=== PATIENT | male | born 2000 | race Caucasian/White ===

== ENCOUNTER 2023-09-27 16:23 | Emergency (ER) | payer MEDICAID ==
[~2023-09-27] VITALS: Ht 172.7 cm; Wt 79.4 kg
[2023-09-27 17:06] VITALS: BP 130/80; PULSE 72; RESP 18; TEMP 98.2; O2SAT 98
[2023-09-27 19:45] VITALS: O2SAT 99
[2023-09-27 19:48] VITALS: BP 123/89; PULSE 72; RESP 14
[2023-09-27 19:50] VITALS: O2SAT 99
[2023-09-27] MEDS: KETOROLAC 30 MG/ML VIAL IM ONE (19:50)
[2023-09-27] MEDS ORDERED: IBUP-2213 PO (20:16)
[2023-09-27 20:28] LABS: APPEARANCE,URINE CLEAR (CLEAR); COLOR,URINE YELLOW (YELLOW); LEUKOCYTE ESTERASE ,URINE NEGATIVE (NEGATIVE)
[2023-09-27 20:29] LABS: NITRITE, URINE NEGATIVE (NEGATIVE); PROTEIN,URINE 4+ (NEGATIVE); UROBILINOGEN,URINE 0.2 EU/dL (0.2 - 1)
[2023-09-27 20:30] LABS: BLOOD, URINE 3+ (NEGATIVE)
[2023-09-27 20:31] LABS: BILIRUBIN,URINE NEGATIVE (NEGATIVE); UGLUCOSE NEGATIVE (NEGATIVE)
[2023-09-27 20:32] LABS: BACTERIA,URINE FEW /HPF (None Seen); RBC,URINE 11-20 (MOD) /HPF (0-5); SQUAMOUS EPITHELIAL CELL,UR 0-3 (FEW) /LPF (0-3 (FEW)); WBC,URINE 0-5 /HPF (0-5)
== END 2023-09-27 20:30 | disposition home or self-care (01) ==
LOC: MED 16:23
DX: N50.812 Left testicular pain (principal); Z79.899 Other long term (current) drug therapy
CPT/HCPCS: 76870; 81001; 87491; 96372; 99285; J1885; Q0092

== ENCOUNTER 2023-09-29 03:25 | Emergency (ER) | payer MEDICAID ==
[~2023-09-29] VITALS: Ht 170.2 cm; Wt 78.9 kg
[~2023-09-29 03:25] MED LIST: IBUP-2213 PO
[2023-09-29 04:00] VITALS: BP 120/72; PULSE 66; RESP 17; TEMP 97.8
[2023-09-29] MEDS: HYDROcodone/APAP 5/325 MG 1 TAB TAB PO ONE (05:24)
[2023-09-29] MEDS: KETOROLAC 30 MG/ML VIAL IM ONE (05:24)
[2023-09-29 05:50] LABS: CALCIUM 9.1 mg/dL (8.5-10.1); CARBON DIOXIDE 31.3 mmol/L (21-32); POTASSIUM 4.3 mmol/L (3.5-5.1)
[2023-09-29] MEDS ORDERED: IBUP-2213 PO (08:17)
[2023-09-29] MEDS ORDERED: ACET-8905 PO (08:17)
== END 2023-09-29 08:26 | disposition home or self-care (01) ==
LOC: MED 03:25
DX: R10.32 Left lower quadrant pain (principal); N50.812 Left testicular pain; R31.9 Hematuria, unspecified; Z79.899 Other long term (current) drug therapy
CPT/HCPCS: 36415; 74176; 80048; 81002; 96372; 99285; J1885

== ENCOUNTER 2023-10-01 16:30 | Emergency (ER) | payer MEDICAID ==
[~2023-10-01] VITALS: Ht 170.2 cm; Wt 78.9 kg
[~2023-10-01 16:30] MED LIST changes: +ACET-8905 PO
[2023-10-01 16:48] VITALS: BP 117/79; PULSE 85; RESP 18; TEMP 97.8; O2SAT 98
[2023-10-01 17:11] VITALS: O2SAT 98
[2023-10-01] MEDS: KETOROLAC 30 MG/ML VIAL IM ONE (17:27)
[2023-10-01 18:11] LABS: APPEARANCE,URINE CLEAR (CLEAR); BILIRUBIN,URINE 1+ (NEGATIVE); BLOOD, URINE 3+ (NEGATIVE); COLOR,URINE YELLOW (YELLOW); LEUKOCYTE ESTERASE ,URINE NEGATIVE (NEGATIVE); NITRITE, URINE NEGATIVE (NEGATIVE); PROTEIN,URINE 1+ (NEGATIVE); UGLUCOSE NEGATIVE (NEGATIVE); UROBILINOGEN,URINE 0.2 EU/dL (0.2 - 1)
[2023-10-01 18:12] VITALS: BP 111/74; PULSE 85; RESP 18; TEMP 97.8
[2023-10-01 18:34] LABS: ICTOTEST NEGATIVE (NEGATIVE)
[2023-10-01 18:35] LABS: BACTERIA,URINE FEW /HPF (None Seen); MUCUS,URINE None Seen /LPF (None Seen); RBC,URINE 20-50 /HPF (0-5); SQUAMOUS EPITHELIAL CELL,UR 0-3 (FEW) /LPF (0-3 (FEW)); TRICHOMONAS,URINE None Seen /HPF (None Seen); WBC,URINE 0-5 /HPF (0-5); WHITE BLOOD CELL CASTS,URINE None Seen /LPF (None Seen); YEAST,URINE None Seen /HPF (None Seen)
[2023-10-01 19:12] VITALS: O2SAT 98
== END 2023-10-01 21:55 | disposition home or self-care (01) ==
LOC: MED 16:30
DX: I86.1 Scrotal varices (principal); N43.3 Hydrocele, unspecified; Z79.1 Long term (current) use of non-steroidal anti-inflammatories (NSAID); Z79.899 Other long term (current) drug therapy
CPT/HCPCS: 76870; 81001; 96372; 99285; J1885; Q0092